=== PATIENT | male | born 1935 | race Caucasian/White ===

== ENCOUNTER 2021-02-05 15:14 | Emergency (ER) | payer MEDICARE, OTHER ==
[2021-02-05] MEDS ORDERED: Ondansetron ODT 4 MG TAB ONE (16:10)
[2021-02-05 22:55] LABS: SARS-CoV-2 PCR by NAA Not Detected (NotDetected)
== END 2021-02-05 16:38 | disposition home or self-care (01) ==
LOC: ERS 15:14
DX: K21.9 Gastro-esophageal reflux disease without esophagitis (principal); R11.0 Nausea; R19.7 Diarrhea, unspecified; Z20.822 Contact with and (suspected) exposure to COVID-19
CPT/HCPCS: U0003; U0005; 99284; Q0162